=== PATIENT | female | born 1980 | race Caucasian/White ===

== ENCOUNTER 2017-01-30 19:23 | Emergency (ER) | payer OTHER ==
[2017-01-30] MEDS ORDERED: ALPRAZolam 0.5 MG TABLET PO ONE (20:04)
--- NOTE | 2017-01-30 21:11 | ER NURSING DOCUMENTATION ---
Nurse's Notes [facility] Name:Nini Bradshaw Age:36 yrs Sex:Female :1980 Arrival Date:01/30/2017 Time:19:23 BedTrauma C Private MD: Diagnosis:Atypical Chest Pain Presentation: 01/30 19:28 Presenting complaint: Patient states: chest tightness for one hour. Transition of care: cb Home. AIR CAT ACTIVATION no other N/A. Asprin Given n/a. 19:28 Method Of Arrival: Private Vehicle cb 19:28 Acuity: RAKESH 3 cb Triage Assessment: 19:38 General: Appears in no apparent distress, well groomed, Behavior is cooperative. Pain: cb Complains of pain in anterior aspect of left upper chest and left breast Pain currently is 2 out of 10 on a pain scale. Aggravated by deep breathing. EENT: No deficits noted. Neuro: Level of Consciousness is awake, alert, Oriented to person, place, time, event. Cardiovascular: Rhythm is regular. Respiratory: Airway is patent Trachea midline Respiratory effort is even, unlabored, Respiratory pattern is regular. GI: Reports tolerance of fluids, tolerance of food. : No deficits noted. Derm: No deficits noted. Musculoskeletal: No deficits noted. Historical: - Allergies: No known drug Allergies; - Home Meds: 1. BCP 2. Miralax Oral - PMHx: fibroid; - PSHx: wisdom teeth; - Tetanus: < 10 years. - Ebola Screening: : Patient negative for fever greater than or equal to 101.5 degrees Fahrenheit, and additional compatible Ebola Virus Disease symptoms. Patient denies exposure to infectious person. Patient denies travel to an Ebola-affected area in the 21 days before illness onset. No symptoms or risks identified at this time. . - Immunization history: Flu Vaccine < 1 year. - Social history: Smoking status: Patient states was never smoker of tobacco. Screenin:17 Infectious Disease Risk None. Abuse screen: Denies threats or abuse. Denies injuries lb from another. Nutritional screening: No deficits noted. Assessment: 19:41 Pain: Pain radiates to anterior aspect of left upper chest and left breast Pain began 1 cb hour ago. Vital Signs: 19:29 BP 140 / 97; Pulse 98; Resp 24; Temp 98.0; Pulse Ox 98% on R/A; Weight 63.5 kg; Height cb 5 ft. 8 in. (172.72 cm); Pain 2/10; 19:29 Body Mass Index 21.29 (63.50 kg, 172.72 cm) cb ED Course: 19:24 Patient arrived in ED. ma1 19:26 Shaun Gonsalez MD is Attending Physician. sc 19:28 Laura Muniz, RN is Primary Nurse. cb 19:29 Triage completed. cb 19:30 Valuables Remains with patient Patient has correct armband on for positive cb identification. Placed in gown. Bed in low position. security monitor on. Pulse ox on. NIBP on. 19:34 EKG done. (by ED staff). Reviewed by Shaun Gonsalez MD. cb 19:41 Notified ED Physician of patient's arrival and chief complaint. Dr. Gonsalez notified. cb 19:44 EKG attached lb Administered Medications: 19:56 Drug: Xanax Tablet 0.5 mg; Route: PO; cb Outcome: 20:38 Discharge ordered by . sc 21:10 Patient left the ED. fc Signatures: Laura Muniz, Shaun Trent RN, cb, MD MD sc collins, floyd fc Bollock, Lynda lb Addison, Melissa ma1
--- NOTE | 2017-01-30 21:11 | ER PHYSICIAN DOCUMENTATION ---
Physician Documentation [facility] Name:Nini Bradshaw Age:36 yrs Sex:Female :1980 Arrival Date:01/30/2017 Time:19:23 BedTrauma C Private MD: Shaun Yuan Disposition: 01/30 20:33 Critical Care: not applicable. vt Disposition: 01/30/17 20:38 Discharged to Home/Self Care. Impression: Atypical Chest Pain. - Condition is Good. - Discharge Instructions: CHEST PAIN Atypical - CHEST PAIN, Uncertain Cause. - Medical Reconciliation form form. - Follow up: Emergency Department; When: As needed; Reason: If symptoms return. - Problem is new. - Symptoms are resolved. HPI: 20:24 This 36 yrs old Female presents to ER via Private Vehicle with complaints of sc Chest Pain. 20:24 The patient or guardian reports chest pain that is located primarily in the anterior sc chest wall, chest diffusely. The pain does not radiate. There has been no movement of pain. Associated signs and symptoms: The patient has no apparent associated signs or symptoms, Pertinent positives: constipation, insomnia last night, surgery scheduled Wednesday for fibroid. The chest pain is described as no pain, just feels tight when she takes a deep breath. Duration: The patient or guardian reports a single episode, that is still ongoing. Historical: - Allergies: No known drug Allergies; - Home Meds: 1. BCP 2. Miralax Oral - PMHx: fibroid; - PSHx: wisdom teeth; - Tetanus: < 10 years. - Ebola Screening: : Patient negative for fever greater than or equal to 101.5 degrees Fahrenheit, and additional compatible Ebola Virus Disease symptoms. Patient denies exposure to infectious person. Patient denies travel to an Ebola-affected area in the 21 days before illness onset. No symptoms or risks identified at this time. . - Immunization history: Flu Vaccine < 1 year. - Social history: Smoking status: Patient states was never smoker of tobacco. ROS: 20:30 Constitutional: Negative for fever, chills, and weight loss. sc Eyes: Negative for injury, pain, redness, and discharge. ENT: Negative for injury, pain, and discharge. Neck: Negative for injury, pain, and swelling. Respiratory: Negative for shortness of breath, cough, wheezing, and pleuritic chest pain. Back: Negative for injury and pain. : Negative for injury, bleeding, discharge, and swelling. MS/Extremity: Negative for injury and deformity. Skin: Negative for injury, rash, and discoloration. 20:30 Neuro: Negative for headache, weakness, numbness, tingling, and seizure. sc 20:30 Cardiovascular: Positive for chest pain. 20:30 Abdomen/GI: Positive for constipation. Exam: Constitutional: This is a well developed, well nourished patient who is awake, alert, and in no acute distress. Head/Face: Normocephalic, atraumatic. Eyes: Pupils equal round and reactive to light, extra-ocular motions intact. Lids and lashes normal. Conjunctiva and sclera are non-icteric and not injected. Cornea within normal limits. Periorbital areas with no swelling, redness, or edema. ENT: Nares patent. No nasal discharge, no septal abnormalities noted. Tympanic membranes are normal and external auditory canals are clear. Oropharynx with no redness, swelling, or masses, exudates, or evidence of obstruction, uvula midline. Mucous membranes moist. Neck: Trachea midline, no thyromegaly or masses palpated, and no cervical lymphadenopathy. Supple, full range of motion without nuchal rigidity, or vertebral point tenderness. No meningismus. Chest/axilla: Normal chest wall appearance and motion. Nontender with no deformity. No lesions are appreciated. Cardiovascular: Regular rate and rhythm with a normal S1 and S2. No gallops, murmurs, or rubs. Normal PMI, no JVD. No pulse deficits. Respiratory: Lungs have equal breath sounds bilaterally, clear to auscultation and percussion. No rales, rhonchi or wheezes noted. No increased work of breathing, no retractions or nasal flaring. Abdomen/GI: Soft, non-tender, with normal bowel sounds. No distension or tympany. No guarding or rebound. No evidence of tenderness throughout. Back: No spinal tenderness. No costovertebral tenderness. Full range of motion. Skin: Warm, dry with normal turgor. Normal color with no rashes, no lesions, and no evidence of cellulitis. MS/ Extremity: Pulses equal, no cyanosis. Neurovascular intact. Full, normal range of motion, negative Homans's, calves equal bilaterally. 20:31 Neuro: Awake and alert, GCS 15, oriented to person, place, time, and situation. vt Cranial nerves II-XII grossly intact. Motor strength 5/5 in all extremities. Sensory grossly intact. Cerebellar exam normal. Normal gait. 20:34 Cardiovascular: Rate: normal, Rhythm: regular. vt Vital Signs: 19:29 BP 140 / 97; Pulse 98; Resp 24; Temp 98.0; Pulse Ox 98% on R/A; Weight 63.5 kg; Height cb 5 ft. 8 in. (172.72 cm); Pain 2/10; 19:29 Body Mass Index 21.29 (63.50 kg, 172.72 cm) cb MDM: 19:26 Patient medically screened. sc 19:44 EKG attached lb 20:32 Differential diagnosis: acute myocardial infarction, anxiety, gastroesophageal reflux sc disease (GERD). The patient was not given aspirin in the Emergency Department as patient refused. Patient refused fibrinolytic. Data reviewed: vital signs, nurses notes, EKG. Data reviewed: and as a result, I will continue to observe the patient. Data interpreted: press operator automatic: rate is 76 beats/min, rhythm is normal sinus rhythm. ECG:. 20:38 ED course: Symptoms resolved with xanax, sxs likely due to altitude, insomnia, sc constipation, surgery apprehension. 0304 19:44 Order name: EKG - 12 Lead; Complete Time: 19:44 lb 04 19:44 Order name: Cardiac Monitoring - Continuous; Complete Time: 19:44 lb 04 19:44 Order name: Pulse Ox Continuous; Complete Time: 19:44 lb EC:32 Rate is 87 beats/min. Rhythm is regular. QRS [place] is Normal. [place] interval is normal. QRS sc interval is normal. QT interval is normal. No Q waves. T waves are Normal. No ST changes noted. Clinical impression: Normal ECG. Interpreted by me. Reviewed by me. Dispensed Medications: 19:56 Drug: Xanax Tablet 0.5 mg; Route: PO; cb Signatures: Laura Muniz RN RN cb Chew, Scott, MD MD sc collins, floyd fc Bollock, Lynda lb
== END 2017-01-30 21:11 | disposition home or self-care (01) ==
LOC: ER 19:23
DX: R07.89 Other chest pain (principal); K59.00 Constipation, unspecified
CPT/HCPCS: 93005; 99284